=== PATIENT | male | born 1960 | race Caucasian/White ===

== ENCOUNTER 2019-12-08 00:34 | Outpatient (CLI) | payer OTHER, SELFPAY ==
--- NOTE | 2019-12-08 | DI.MRI_ITS ---
EXAM: MR LUMBAR SPINE WO CLINICAL HISTORY: LUMBAGO WITH SCIATICA, LT SIDE, M54.42. TECHNIQUE: Multiplanar multisequence MRI of the Lumbar spine was performed. COMPARISON: No exams were available for comparison FINDINGS: Bones: The last intervertebral disc space is designated the L5/S1 level for the numbering purpose of this examination. The vertebral body heights are well maintained. There is L5 spondylolysis and gra de 1 spondylolisthesis of L5 on S1. The signal characteristics are unremarkable. Cord: The conus tip ends at the L1 level. It is of normal size and signal intensity. T12-L1: No disc herniations or bulges are present. No central spinal canal or neural foraminal stenos is. L1-2: Mild diffuse disc bulge. There is loss of the normal disc signal.. No central spinal canal or neural foraminal stenosis. L2-3: No disc herniations or bulges are present. There is loss of the normal disc signal. No centra l spinal canal or neural foraminal stenosis. L3-4: No disc herniations or bulges are present. There is loss of the normal disc signal. No centra l spinal canal or neural foraminal stenosis. L4-5: No disc herniations or bulges are present. No central spinal canal or neural foraminal stenosis . L5-S1: No disc herniations or bulges are present. No central spinal canal stenosis.Moderately severe bilateral neural foraminal stenosis. Hypertrophy of the facets is noted. Soft tissues: The visualized SI joints and sacrum are well maintained. The paraspinal soft tissues ar e unremarkable. IMPRESSION: L5 spondylolysis and grade 1 spondylolisthesis of L5 on S1 resulting in moderately severe bilateral n eural foraminal stenosis. DATA REPOSITORY:
== END 2019-12-08 00:54 ==
PROVIDERS: PCP Physician Assistant; Visit Provider Physician Assistant
DX: M54.42 Lumbago with sciatica, left side (principal); M43.07 Spondylolysis, lumbosacral region; M43.17 Spondylolisthesis, lumbosacral region; M51.16 Intervertebral disc disorders with radiculopathy, lumbar region
CPT/HCPCS: 72148

== ENCOUNTER 2020-03-13 00:43 | Outpatient (CLI) | payer OTHER, SELFPAY ==
--- NOTE | 2020-03-13 16:00 | DI.MRI_ITS ---
EXAM: MR BRAIN WO CLINICAL HISTORY: CONCUSSION WITHOUT LOC,SUBSEQUENT ENCOUNTER,S06.0X0D TECHNIQUE: Multiplanar multisequence MRI of the brain was performed. COMPARISON: No exams were available for comparison FINDINGS: The ventricular system is normal in appearances. No signal abnormality identified in the brain. The orbital and temporal bone structures appears intact as does the pituitary. Diffusion weighted imaging shows No evidence of infarction. Susceptibility weighted imaging shows no evidence of intracranial hemorrhage. There is normal flow void in the [place] vasculature. IMPRESSION: Normal brain MRI DATA REPOSITORY:
== END 2020-03-13 01:03 ==
PROVIDERS: PCP Physician Assistant; Visit Provider Physician Assistant
DX: S06.0X0D Concussion without loss of consciousness, subsequent encounter (principal)
CPT/HCPCS: 70551

== ENCOUNTER 2020-09-14 11:20 | Outpatient (CLI) | payer BC, SELFPAY ==
--- NOTE | 2020-09-14 11:15 | DI.RAD_ITS ---
EXAM: XR ELBOW LT COMPLETE CLINICAL HISTORY: elbow pain. TECHNIQUE: 2D digital imaging was performed. COMPARISON: No exams were available for comparison FINDINGS: There is no evidence of fracture or joint effusion. There is no swelling of the olecranon bursa. Ra dial head appears unremarkable. No joint space narrowing. On the AP view there is a 1 millimeter calcific density adjacent to the cortex of the lateral epicond yle. Correlation with any clinical signs of epicondylitis is recommended. IMPRESSION: DATA REPOSITORY: RADIATION DOSE DELIVERED:
--- NOTE | 2020-09-14 11:15 | DI.RAD_ITS ---
EXAM: XR KNEE LT 3V AP,LAT,WENDY CLINICAL HISTORY: knee pain. TECHNIQUE: 2D digital imaging was performed. COMPARISON: No exams were available for comparison FINDINGS: There is no evidence of fracture nor obvious joint effusion. There is a broad-based bony excrescence off the medial aspect of the distal femur at the metaphysis, this exhibiting a broad-base measuremen t 2 cm and 0.9 cm height. This is most probably an osteochondroma. No other similar bony lesions se en in the field of view. There is very subtle chondrocalcinosis evident in the medial compartment. There is also mild narrowing of the medial compartment as seen on the weight-bearing view. The lateral compartment exhibits normal height. On 1 image there appears to be lateral patellar disp lacement. IMPRESSION: DATA REPOSITORY: RADIATION DOSE DELIVERED:
== END 2020-09-14 11:21 | disposition home or self-care (01) ==
LOC: DIORS 11:20
PROVIDERS: PCP Physician Assistant; Referring Provider Physician Assistant; Visit Provider Physician Assistant
DX: M25.561 Pain in right knee (principal); M25.522 Pain in left elbow
CPT/HCPCS: 73562; 73080

== ENCOUNTER 2020-09-27 09:33 | Outpatient (CLI) | payer BC, SELFPAY ==
--- NOTE | 2020-09-27 08:30 | DI.MRI_ITS ---
EXAM: MR LOWER JOINT LT WO CLINICAL HISTORY: chondrocalcinosis lt knee, lt knee pain,m11.262. TECHNIQUE: Multiplanar multisequence MRI was performed. COMPARISON: No exams were available for comparison FINDINGS: BONES: There is no fracture or contusion pattern. JOINTS: There is thinning of the articular cartilage in the lateral patellofemoral joint with subchon dral edema and periarticular spurring. There is also mild articular cartilage thinning and subchondr al edema in the lateral femoral tibial joint. There is a small joint effusion. TENDONS: Extensor mechanism: There is mild increased signal and thickening of the quadriceps tendon at its ins ertion site laterally this may represent a partial tear. Medial retinaculum: Unremarkable. Lateral retinaculum: Unremarkable. Popliteus: Unremarkable. MUSCLES: Unremarkable. MENISCI: There is a tear of the body and posterior horn of the medial meniscus. The lateral meniscus is unremarkable. SOFT TISSUES: There is edema in the soft tissues of posteriorly. LIGAMENTS: Anterior Cruciate: Unremarkable. Posterior Cruciate: Unremarkable. Medial Collateral:There is fluid surrounding the medial collateral ligament consistent with a sprain. Lateral Collateral: Unremarkable. OTHER: There is moderate-sized popliteal cyst. IMPRESSION: 1. Tear of the body and posterior horn of the medial meniscus. 2. MCL sprain. 3. Thickening and increased signal in the quadriceps tendon suspicious for partial tear or tendinosis . 4. Degenerative change seen in the femoral tibial and patellofemoral joints. DATA REPOSITORY:
== END 2020-09-27 09:53 ==
LOC: DI 09:35
PROVIDERS: PCP Physician Assistant; Visit Provider Student in an Organized Health Care Education/Training Program
DX: M25.562 Pain in left knee (principal); M11.262 Other chondrocalcinosis, left knee; S83.242A Other tear of medial meniscus, current injury, left knee, initial encounter; S83.412A Sprain of medial collateral ligament of left knee, initial encounter
CPT/HCPCS: 73721

== ENCOUNTER 2021-08-31 16:44 | Outpatient (REF) | payer BC, SELFPAY ==
[2021-08-31 21:03] LABS: Abs Immature Grans 0.04 10^3/uL (0.0-0.06); Absolute Lymphocyte Count 1.15 10^3/uL (1.2-3.4); Basophils % 0.3; Eosinophils % 0.3; HCT 45.8 % (40.0-50.0); HGB 15.1 g/dL (13.5-17.5); Immature Grans % 0.3; MCH 29.6 pg (27.0-33.0); MCV 89.8 fL (80-95); MPV 11.2 fL (8.0-11.0); Monocytes % 10.4; Neutrophils % 78.7; Nucleated RBC 0 %; Platelet Count 181 10^3/uL (130-400); RDW 12.6 % (11.8-14.1); RDW-SD 41.8 fL; WBC 11.51 10^3/uL (4.4-10.8)
[2021-08-31 21:28] LABS: Absolute Basophil Count 0.03 10^3/uL (0.0-0.2); Absolute Eosinophil Count 0.03 10^3/uL (0.0-0.7); Absolute Neutrophil Count 9.06 10^3/uL (1.2-6.7); Anion Gap 8.5 mmol/L (3-11); BUN 24 mg/dL (7-18); CO2 27.5 mmol/L (21.0-32.0); CREATININE 1.2 mg/dL (0.70-1.30); Calcium 9.1 mg/dL (8.5-10.1); Chloride 101 mmol/L (98-107); Glucose 109 mg/dL (74-106); Potassium 4.1 mmol/L (3.5-5.1); Sodium 137 mmol/L (136-145); TSH (W/Ref FT4) 0.61 uIU/mL (0.36-3.74)
[2021-09-02 11:25] LABS: COVID-19 RT-PCR UVMMC Result Negative (Negative)
== END 2021-08-31 16:45 | disposition home or self-care (01) ==
LOC: LBN 16:44
PROVIDERS: PCP Physician Assistant; Visit Provider Physician Assistant Medical
DX: R53.83 Other fatigue (principal); R53.81 Other malaise; Z20.822 Contact with and (suspected) exposure to COVID-19
CPT/HCPCS: 80048; U0003; 84443; 85025

== ENCOUNTER 2021-09-06 14:50 | Outpatient (CLI) | payer BC, SELFPAY ==
--- NOTE | 2021-09-06 14:31 | DI.RAD_ITS ---
Exam(s) XR CHEST 2V PA LATERAL EXAM: XR CHEST 2V PA LATERAL CLINICAL HISTORY: ACUTE BRONCHITIS J20.9 TECHNIQUE: 2D digital imaging was performed of the chest. Two images were obtained. PA and lateral views were obtained. COMPARISON: No exams were available for comparison FINDINGS: MEDIASTINUM: Normal. HEART: Normal. PULMONARY VASCULATURE: Normal. LUNGS: Numerous pulmonary nodules are identified throughout the lungs. PLEURAL SPACE: No pleural effusion or pneumothorax. BONE:Within normal limits for the patient's age. OTHER FINDINGS:Normal. IMPRESSION: Numerous pulmonary nodules. Primary concern is for metastatic disease. A CT scan of the chest shoul d be obtained for further evaluation. DATA REPOSITORY: RADIATION DOSE DELIVERED:
== END 2021-09-06 15:10 ==
LOC: DI 14:56
PROVIDERS: PCP Physician Assistant; Visit Provider Physician Assistant
DX: J20.9 Acute bronchitis, unspecified (principal); R91.8 Other nonspecific abnormal finding of lung field
CPT/HCPCS: 71046

== ENCOUNTER 2023-08-04 15:23 | Outpatient (CLI) | payer BC, SELFPAY ==
--- NOTE | 2023-08-04 14:45 | DI.RAD_ITS ---
Exam(s) XR KNEE LT 4V AP,LAT,WENDY,PAT EXAM: XR KNEE LT 4V AP,LAT,WENDY,PAT CLINICAL HISTORY: L knee pain. TECHNIQUE: 2D digital imaging was performed. Three views. COMPARISON: CR XR KNEE LT 3V AP,LAT,WENDY from 09/14/2020 MR MR LOWER JOINT LT WO from 09/27/2020 FINDINGS: BONES: No acute fracture is present. No bony destructive lesion is seen. No change in osteo chondr hanny medial distal femoral metaphysis. JOINTS: The knee is normally aligned. No joint effusion is seen. Progression of joint space narrowi ng, now moderate to severe. Arm degenerative changes of the patellofemoral joint. Significant later al patellar subluxation with marked widening of the medial patellofemoral joint space. This appears stable from prior. Chondrocalcinosis. Mild periarticular spurring. SOFT TISSUE: Normal. IMPRESSION: moderate severe degenerative changes of the medial femoral tibial joint space. Moderate degenerativ e changes of the patellofemoral joint. DATA REPOSITORY: RADIATION DOSE DELIVERED:
== END 2023-08-04 15:24 | disposition home or self-care (01) ==
LOC: DIORS 15:23
PROVIDERS: PCP Physician Assistant; Visit Provider Physician Assistant
DX: M17.12 Unilateral primary osteoarthritis, left knee (principal)
CPT/HCPCS: 73564

== ENCOUNTER → 2024-02-24 00:45 | Outpatient (CLI) | payer BC, SELFPAY ==
--- NOTE | 2024-02-24 07:45 | DI.MRI_ITS ---
Exam(s) MR IAC BRAIN WO/W EXAM: MR IAC BRAIN WO/W CLINICAL HISTORY: daily headaches,tinnitus,hx sarcoid,ear clicks TECHNIQUE: Multiplanar multisequence MRI of the brain was performed. Both noninfused and contrast i nfused sequences were performed. IV Contrast injected was 17 cc Dotarem. COMPARISON: MR MR BRAIN WO from 03/13/2020 FINDINGS: CEREBRAL PARENCHYMA: No evidence of intracranial hemorrhage, mass effect nor shift of midline structu re. No extraaxial fluid collections. Ventricles are not enlarged nor shifted. There is no significant focal signal abnormality in the cerebellar hemispheres nor within the laura, m idbrain, and thalami. There is no abnormal signal abnormality in the periventricular white matter. DWI: No areas of restricted diffusion to suggest acute ischemic event. SWI: No microhemorrhages evident. IAC'S: There is no evidence of mass in the cerebellopontine angles and there is no evidence of intra canalicular mass. The 7th and 8th cranial nerves appear unremarkable within the bilateral internal a uditory canals. There are no ring enhancing lesions in the brain. There is no abnormal meningeal enhancement. PITUITARY GLAND: No mass nor parasellar abnormality. No obvious abnormality in the cavernous sinuses. FLOW VOIDS: The expected flow void are noted. No evidence of obvious aneurysm nor obvious vascular ma lformation. PARANASAL SINUSES: There is a polyp or retention cyst in the anterosuperior aspect of the right maxil jaclyn sinus measuring 1.0 x 1.0 cm. This is unchanged from prior MRI scan of February 2020. ORBITS: No obvious abnormal findings. IMPRESSION: 1. No significant intracranial findings on this MRI scan of the brain. 2. No abnormal enhancing intracranial findings. There are no ring enhancing lesions in the brain and there is no abnormal meningeal enhancement. 3. No evidence of acoustic schwannoma/neuroma nor other findings in the internal auditory canals, po wilver acoustus, nor at the level the cerebellopontine angles. 4.. There is a 10 x 10 mm polyp or retention cyst in the anterior superior aspect of the right maxill alonso sinus, unchanged from prior MRI of 03/13/2020. DATA REPOSITORY:
[2024-02-24] MEDS: Normal Saline Flush 10 ML SYR IVP (12:16)
[2024-02-24] MEDS: Gadoterate meglumine 20 ML SYRINGE 17 ML IVP (12:17)
== END ==
PROVIDERS: PCP Physician Assistant; Visit Provider Nurse Practitioner Adult Health
DX: R51.9 Headache, unspecified (principal); H93.13 Tinnitus, bilateral; D86.0 Sarcoidosis of lung
CPT/HCPCS: 70553